=== PATIENT | male | born 1955 | race Caucasian/White ===

== ENCOUNTER 2021-07-20 12:48 | Outpatient (CLI) | payer OTHER, SELFPAY ==
[2021-07-20 13:04] LABS: Platelet Count 154 K/mm3 (150-450)
[2021-07-20 13:19] LABS: Prothrombin Time (Protime)PT. 12.5 SECONDS (11.7-14.9)
== END 2021-07-20 23:59 | disposition home or self-care (01) ==
LOC: PAVLAB 12:53
PROVIDERS: PCP Preventive Medicine Occupational Medicine; Referring Provider Internal Medicine Critical Care Medicine; Visit Provider Internal Medicine Critical Care Medicine
DX: R91.1 Solitary pulmonary nodule (principal)
CPT/HCPCS: 36415; 85049; 85610

== ENCOUNTER 2021-07-24 08:56 | Outpatient (CLI) | payer OTHER, SELFPAY ==
[2021-07-24] VITALS (12 sets, daily range): BP systolic 81–111; BP diastolic 46–73; PULSE 61–73; RESP 13–19; TEMP 36.8; O2SAT 93–98; BMI 20.3
--- NOTE | 2021-07-24 | IMM_PTH ---
PATIENT: LYDIA PEDRAZA LOC: CT U#:[id number] AGE/SX: 65/M ROOM: RE07/24/[address]: Dr. Aly Ellis DO : 1955 BED: DIS: 07/24/2021 SPEC #: [id number] RECD: 07/25/21 12:21 STATUS: ELAINE REQ #: [id number] MIC: 07/24/21 00:[address]: Aly Ellis DEPT: IMMUNOHISTOCHEMISTRY RECD BY: Daphnie Cortez ENTERED: 07/25/21 12:22 SP TYPE: IMMUNO OTHR DR: Dr. Josh Mosher DO Tissues: Right upper lobe of lung, NOS Procedures: CD45 (add) KI-67 (add) P53 (add) Pankeratin (initial) P40 (add) PHYSICIAN & INSTITUTION [place] [id number] SPECIMEN INFORMATION: Tissue Source: Right upper lobe lung nodule Clinical Info: Right upper lobe lung nodule Specimen Number: [id number] CPT code: 21662, 62967 x4 METHODOLOGY: Deparaffinized sections of prefer/formalin-fixed tissue or PAP/DQ stained slides are incubated with monoclonal/polyclonal antibodies/oligonucleotide probes. Localization is made via biotin free immunoperoxidase method. Appropriate controls are performed and reacted as expected. Results on target cell population are indicated in the following table: RESULTS: ANTIBODY / CLONE RESULT AE1-3 (AE1/AE3/PCK26) negative P53 (DO-7) negative Ki-67 (30-9) negative P40 (BC28) negative CD45 (RP2/18) negative These tests were developed and their performance characteristics determined by [facility]. They may not have been cleared or approved by the [place]. Food and Drug Administration. The FDA has determined that such clearance or approval is not necessary. The above immunohistochemical/dualISH markers are ordered and reviewed by the Pathologist. INTERPRETATION: Right upper lobe lung nodule, CT-guided biopsy: No evidence of malignancy. AM:abraham 07/26/2021
--- NOTE | 2021-07-24 09:05 | CT_ITS ---
PROCEDURE: CT GUIDED CORE NEEDLE BIOPSY OF A right upper lobe LUNG LESION INDICATION: Male, 65 years old. RUL Nodule PHYSICIAN: Dr. EMILEE Hankins CONSENT: Written informed consent was obtained having explained the risks, benefits and alternatives in detail with the patient who accepted the risks and agreed to proceed. Laboratory review and clinical assessment was performed. CONSCIOUS SEDATION PROTOCOL: The Drugs used were: 2 mg Versed, IV., and 50 mcg Fentanyl, IV. The sedation time was: 30 minutes. Conscious sedation was started at 10:09 AM and terminated at 10:39 AM. The conscious sedation protocol was independently monitored. RADIATION DOSAGE (If Supplied By Facility): CTDIvol = ( 18.99 ) mGy, DLP = ( 512.7 ) mGycm Individualized dose optimization techniques were used for this CT. TECHNIQUE: The patient was placed in the supine position. A noncontrast CT was performed to localize the lesion in the anterior right upper lobe . The skin surface was prepped and draped in a sterile fashion. 1% lidocaine was used for local anesthesia. Using CT guidance, a 20-gauge coaxial biopsy device was advanced to the periphery of the lesion. A total of 5 core specimens were obtained. The specimens were placed in a formalin solution. A post procedure CT demonstrated no adverse sequelae or pneumothorax. The patient tolerated the procedure well without adverse event. A negative biopsy does not exclude malignancy. Further imaging or clinical followup based on patient condition and degree of clinical suspicion for malignancy. Suggest rebiopsy, if biopsy results do not match with clinical scenario. CT/Biopsy/Inj or Needle Placement IMPRESSION: 1. CT directed core needle biopsy of the right upper lobe nodule using CT image guidance with image documentation as described. Pathology results are pending. 2. Conscious Sedation protocol utilized with independent monitoring. Electronically Signed: Franklin Banks MD at 10:59 EST ,
[2021-07-24] MEDS: Midazolam 2 MG/2 ML Syringe IV (10:08)
[2021-07-24] MEDS: fentaNYL 100 MCG/2 ML Ampul IV (10:11)
--- NOTE | 2021-07-24 10:15 | RAD_ITS ---
STUDY: X-RAY CHEST REASON FOR EXAM: Male, 65 years old. Pneumothorax -- Immediately post lung biopsy TECHNIQUE: AP inspiration and expiration views. COMPARISON: None. FINDINGS: Immediate post right lung biopsy radiographs. Small right apical pneumothorax. The patient is asymptomatic. RAD/Chest Insp/Exp 2 View IMPRESSION: Small right apical pneumothorax. Patient is asymptomatic. Electronically Signed: Franklin Banks MD at 11:04 EST ,
[2021-07-24] MEDS: Lidocaine 2% (20 ml mdv) 20 ML Vial INFILT (10:25)
--- NOTE | 2021-07-24 10:30 | ASPIGT_PTH ---
PATIENT: LYDIA PEDRAZA LOC: ME U#:[id number] AGE/SX: 65/M ROOM: RE07/24/[address]: Dr. Aly Ellis DO : 1955 BED: DIS: 07/24/2021 SPEC #: [id number] RECD: 07/24/21 10:59 STATUS: ELAINE REQ #: [id number] MIC: 07/24/21 10:[address]: Aly Ellis DEPT: SURGICAL PATHOLOGY RECD BY: Itzel Fowler ENTERED: 07/24/21 11:00 SP TYPE: ASP RAD OTHR DR: Dr. Josh Mosher DO Tissues: Lung, NOS Procedures: FNA Specimen Adequacy Special Stain Group II Surgery Specimen Level IV Imprint (control) HEADER OPERATION: CT-guided right lung biopsy PRE-OP DIAGNOSIS: Right upper lobe lung nodule TISSUE SUBMITTED: Right upper lobe lung nodule 20-gauge x5 MICROSCOPIC DIAGNOSIS Right upper lobe of lung, CT-guided core biopsy: Minimal chronic inflammation. Focal anthracotic pigment. No evidence of malignancy. See comment. AM:abraham 07/25/2021 COMMENT The specimen is evaluated at the time of biopsy by Dr. Rider. Immediate Evaluation = Negative for malignant cells. Immunohistochemistry ([id number]) supports the above diagnosis. MICROSCOPIC DESCRIPTION Slides are reviewed. GROSS DESCRIPTION Received in fixative is one container labeled with the patient's name and designated right upper lobe lung, CT-guided core biopsy. The specimen consists of multiple irregular fragments of badillo soft tissue that in aggregate measure 0.5 x 0.1 x <0.1 cm. The specimen is totally submitted in one cassette. Two touch imprints are prepared at the time of core biopsy. / SJ:abraham 07/24/2021 TC:5 CPT: 34510, 25314
--- NOTE | 2021-07-24 12:15 | RAD_ITS ---
STUDY: X-RAY CHEST REASON FOR EXAM: Male, 65 years old. Pneumothorax -- 2 hours post lung biopsy TECHNIQUE: AP inspiration and expiration views. COMPARISON: Comparison is made with prior study done earlier in the day. FINDINGS: Stable small right apical pneumothorax. The patient is asymptomatic. RAD/Chest Insp/Exp 2 View IMPRESSION: Stable small right apical pneumothorax. The patient is asymptomatic. Electronically Signed: Franklin Banks MD at 13:35 EST ,
== END 2021-07-24 23:59 | disposition home or self-care (01) ==
LOC: CT 08:59
PROVIDERS: PCP Preventive Medicine Occupational Medicine; Referring Provider Internal Medicine Critical Care Medicine; Visit Provider Internal Medicine Critical Care Medicine
DX: R91.1 Solitary pulmonary nodule (principal)
CPT/HCPCS: 32408; 71046; 77012; 88172; 88305; 88313; 88341; 88342; 99156; 99157; J7040; A4216; C2613

== ENCOUNTER → 2021-10-10 | Outpatient (CLI) | payer OTHER, SELFPAY ==
--- NOTE | 2021-10-10 13:51 | CT_ITS ---
STUDY: CT CHEST WITHOUT CONTRAST REASON FOR EXAM: Male, 66 years old. Follow high risk mass RADIATION DOSAGE (If Supplied By Facility): CTDIvol = ( 6.35 ) mGy, DLP = ( 275.75 ) mGycm TECHNIQUE: Transaxial imaging was performed without the administration of intravenous contrast material. Individualized dose optimization techniques were used for this CT. COMPARISON: No relevant priors. FINDINGS: CHEST Hyperinflation. Diffuse emphysematous changes with the centrilobular emphysema more prominent in the upper lobes. There is a 1.6 cm x 1 cm nodule in the anterior aspect of the right upper lobe as seen on axial image #34 and coronal image #82. There is no demonstrated pleural abnormality. Normal heart and pericardium. There are multiple small lymph nodes within the mediastinum, which are normal in size and morphology most compatible with reactive lymph hyperplasia. Normal hilar regions. Normal unenhanced pulmonary arteries. Normal aorta arch and descending thoracic aorta. There are degenerative changes of the thoracic spine. Mild left adrenal hyperplasia. Multiple gallstones. CT/Chest without Contrast IMPRESSION: 1.6 cm x 1 cm nodule in the anterior aspect of the right upper lobe as described. Hyperinflation and diffuse emphysematous changes worse in the upper lobes. Electronically Signed: Franklin Banks MD at 15:00 EDT ,
== END | disposition home or self-care (01) ==
LOC: CT 13:49
PROVIDERS: PCP Preventive Medicine Occupational Medicine; Referring Provider Nurse Practitioner Acute Care; Visit Provider Nurse Practitioner Acute Care
DX: R91.8 Other nonspecific abnormal finding of lung field (principal)
CPT/HCPCS: 71250